=== PATIENT | male | born 1995 | race Two or more races ===

== ENCOUNTER 2019-08-01 16:59 | Emergency (ER) | payer OTHER ==
[~2019-08-01] VITALS: Ht 172.7 cm; Wt 97.5 kg
[2019-08-01 17:13] VITALS: BP 127/72
--- NOTE | 2019-08-01 17:14 | NUR ---
PT AAOX4. AMBULATORY. BIBLAPD C/O R SHOULDER PAIN SP RUNNING AWAY FROM PD. PT STATES HE HAD SHOULDER SURGERY AND NOW CANNOT MOVE HIS ARM. UPON ASSESSMENT PT ABLE TO PRINTED CIRCUIT BOARDS STRIPPER ETCHER FINGER AND MOVE FOREARM WITH MIN PAIN. VSS. NO ACUTE DISTRESS NOTED. AWAITING MD FOR EVAL.
[2019-08-01] MEDS ORDERED: KETOROLAC TROMETHAMINE INJ 30 MG/ML VIAL ONE (17:24)
--- NOTE | 2019-08-01 17:29 | NUR ---
PT GIVEN MEDICATION AND SLING PLACED ON ARM.
[2019-08-01] MEDS ORDERED: KETOROLAC TROMETHAMINE INJ 60 MG/2 ML VIAL IM ONE (17:30)
--- NOTE | 2019-08-01 17:42 | NUR ---
PT MEDICALLY CLEARED FOR BOOKING.
--- NOTE | 2019-08-01 17:43 | NUR ---
Patient discharged to home in stable condition. Written and verbal after care instructions given. Patient verbalizes understanding of instruction and RX. Ambulatory with steady gait.
== END 2019-08-01 17:47 ==
LOC: ER 17:02
DX: M25.511 Pain in right shoulder (principal); Z02.89 Encounter for other administrative examinations; Z88.0 Allergy status to penicillin; Z98.890 Other specified postprocedural states
CPT/HCPCS: 96372; 99283; J1885